=== PATIENT | female | born 1995 | race Caucasian/White ===

== ENCOUNTER 2022-02-25 07:06 | Emergency (ER) | payer MEDICAID, OTHER ==
[~2022-02-25] VITALS: Ht 154.9 cm; Wt 99.8 kg
[2022-02-25 07:35] VITALS: BP 120/67
[2022-02-25] MEDS ORDERED: ALBUTEROL SULF 2.5 MG/0.5ML(0.5%) NEB SOLN NEB ONE ×2 (07:45→08:00)
[2022-02-25] MEDS ORDERED: IPRATROPIUM BROM 0.5 MG/2.5ML INH SOL NEB ONE ×2 (07:45→08:00)
[2022-02-25] MEDS ORDERED: methylPREDNISolone SOD SUCC 125 MG/2 ML VL ONE (07:51)
[2022-02-25] MEDS ORDERED: methylPREDNISolone SOD SUCC 125 MG/2 ML VL IM ONE (08:00)
[2022-02-25] MEDS ORDERED: AZIT500T66 PO (08:25)
[2022-02-25] MEDS ORDERED: ALBU108A5 IN (08:25)
[2022-02-25] MEDS ORDERED: PRED20TA2 PO (08:25)
== END 2022-02-25 08:30 | disposition home or self-care (01) ==
LOC: ER 07:06
DX: J45.909 Unspecified asthma, uncomplicated (principal); E78.5 Hyperlipidemia, unspecified
CPT/HCPCS: 71046; 94640; 96372; 99283; J2930; J7644

== ENCOUNTER 2023-02-08 17:14 | Emergency (ER) | payer MEDICAID ==
[~2023-02-08] VITALS: Ht 154.9 cm; Wt 92.4 kg
[~2023-02-08 17:14] MED LIST: ALBU108A5 IN; AZIT500T66 PO; PRED20TA2 PO
[2023-02-08] MEDS ORDERED: IPRATROPIUM BROM 0.5 MG/2.5ML INH SOL NEB ONE (17:30)
[2023-02-08] MEDS ORDERED: ALBUTEROL SULF 2.5 MG/0.5ML(0.5%) NEB SOLN NEB ONE (17:30)
[2023-02-08] MEDS ORDERED: PRED20TA2 PO (18:40)
[2023-02-08] MEDS ORDERED: ALBUAER3 IN (18:40)
[2023-02-08] MEDS ORDERED: ACET-1158 PO (18:40)
[2023-02-08] MEDS ORDERED: AMOX-277 PO (18:40)
[2023-02-08 18:45] VITALS: BP 118/70
[2023-02-08] MEDS ORDERED: methylPREDNISolone SOD SUCC 125 MG/2 ML VL IM ONE (18:45)
== END 2023-02-08 18:57 | disposition home or self-care (01) ==
LOC: ER 17:14
DX: J45.998 Other asthma (principal); E78.5 Hyperlipidemia, unspecified
CPT/HCPCS: 94640; 96372; 99283; J2930; J7644